=== PATIENT | female | born 1995 | race Caucasian/White ===

== ENCOUNTER 2018-06-14 01:25 | Emergency (ER) | payer SELFPAY ==
[2018-06-14] MEDS ORDERED: Sodium Chloride 0.9% 1,000 ML IV SCH (01:30)
--- NOTE | 2018-06-14 02:11 | CT ---
INDICATION: Fall TECHNIQUE: CT head without contrast. COMPARISON: FINDINGS: CSF spaces: Within normal limits for age. Brain parenchyma: The weathers-white differentiation is normal. No sign of mass, hemorrhage, or midline shift. Skull base and calvarium: The visualized paranasal sinuses and mastoid air cells demonstrate no acute or significant findings. The visualized orbits are grossly unremarkable. No skull fractures. IMPRESSION: Unremarkable noncontrast head CT. Please note that all CT scans at this facility use dose modulation, iterative reconstruction, and/or weight-based dosing when appropriate to reduce radiation dose to as low as reasonably achievable. Dictated by Tawana Wheeler MD @ Jun 14 2018 2:08AM Signed by Dr. Tawana Wheeler @ Jun 14 2018 2:10AM
[2018-06-14 02:32] LABS: CHLORIDE,CL 103 mmol/L (98-107); SODIUM,NA 140 mmol/L (136-145)
--- NOTE | 2018-06-14 02:51 | EDM.PDOC ---
ED HPI GENERAL MEDICAL PROBLEM - General Chief Complaint: Neuro Symptoms/Deficits Stated Complaint: AMB Time Seen by Provider: 06/14/18 02:48 Source of Information: Reports: Patient - History of Present Illness INITIAL COMMENTS - FREE TEXT/NARRATIVE: HISTORY AND PHYSICAL: History of present illness: Patient arrives via EMS Apparently has a history of CVA and [place], she acutely developed left sided weakness and aphasia She is alert, looking about the room and can turn her head EMS report some facial droop on the left however I do not appreciate this on exam at this time however she does have flaccid weakness of the left upper and lower extremity Review of systems unable to be obtained Review of systems: As per history of present illness and below otherwise all systems reviewed and negative. Past medical history: As per history of present illness and as reviewed below otherwise noncontributory. Surgical history: As per history of present illness and as reviewed below otherwise noncontributory. Social history: No reported history of drug or alcohol abuse. Family history: As per history of present illness and as reviewed below otherwise noncontributory. Physical exam: HEENT: Atraumatic, normocephalic, pupils reactive, negative for conjunctival pallor or scleral icterus, mucous membranes moist, throat clear, neck supple, nontender, trachea midline. Lungs: Clear to auscultation, breath sounds equal bilaterally, chest nontender. Heart: S1S2, regular, negative for clicks, rubs, or JVD. Abdomen: Soft, nondistended, nontender. Negative for masses or hepatosplenomegaly. Negative for costovertebral tenderness. Pelvis: Stable nontender. Genitourinary: Deferred. Rectal: Deferred. Extremities: Atraumatic, negative for cords or calf pain. Neurovascular unremarkable. Neuro: Awake, alert, oriented. Cranial nerves II through XII unremarkable. Cerebellum unremarkable. Motor and sensory unremarkable throughout. Exam nonfocal. Diagnostics: [CBC CMP UA troponin INR Head CT no contrast EKG Chest 1 view ] Therapeutics: Normal saline TNK ] Patient will be sent [facility] to Dr. Sim in the ER Impression: [ left-sided weakness upper and lower extremity ] Definitive disposition and diagnosis as appropriate pending reevaluation and review of above. ED ROS GENERAL - Review of Systems Review Of Systems: See Below ED EXAM, GENERAL - Physical Exam Exam: See Below Course - Vital Signs Last Recorded V/S: Last Vital Signs Temp 96.7 F 06/14/18 02:26 Pulse 97 06/14/18 02:26 Resp BP 168/88 H 06/14/18 02:26 Pulse Ox 97 06/14/18 02:26 - Orders/Labs/Meds Orders: Active Orders 24 hr Category Date Time Status EKG Documentation Completion [RC] STAT Care 06/14/18 01:26 Active Chest 1V Frontal [CR] Stat Exams 06/14/18 01:26 Taken UA RFX BRYAN AND CULT IF INDIC [URIN] Stat Lab 06/14/18 01:26 Ordered Labs: Laboratory Tests 06/14/18 06/14/18 06/14/18 Range/Units 01:52 01:52 01:52 WBC 12.25 H (4.0-11.0) K/uL RBC 4.72 (4.30-5.90) M/uL Hgb 11.6 L (12.0-16.0) g/dL Hct 38.0 (36.0-46.0) % MCV 80.5 (80.0-98.0) fL MCH 24.6 L (27.0-32.0) pg MCHC 30.5 L (31.0-37.0) g/dL RDW Std Deviation 55.8 (28.0-62.0) fl RDW Coeff of Venkatesh 19 H (11.0-15.0) % Plt Count 267 (150-400) K/uL MPV 8.80 (7.40-12.00) fL Neut % (Auto) 64.8 (48.0-80.0) % Lymph % (Auto) 25.1 (16.0-40.0) % Sequoyah % (Auto) 6.5 (0.0-15.0) % Eos % (Auto) 3.3 (0.0-7.0) % Baso % (Auto) 0.3 (0.0-1.5) % Neut # (Auto) 7.9 H (1.4-5.7) K/uL Lymph # (Auto) 3.1 H (0.6-2.4) K/uL Sequoyah # (Auto) 0.8 (0.0-0.8) K/uL Eos # (Auto) 0.4 (0.0-0.7) K/uL Baso # (Auto) 0.0 (0.0-0.1) K/uL Nucleated RBC % 0.0 /100WBC Nucleated RBCs # 0 K/uL INR 0.93 Sodium 140 (136-145) mmol/L Potassium 3.8 (3.5-5.1) mmol/L Chloride 103 (98-107) mmol/L Carbon Dioxide 25.0 (21.0-32.0) mmol/L BUN 7 (7.0-18.0) mg/dL Creatinine 0.9 (0.6-1.0) mg/dL Est Cr Clr Drug Dosing TNP Estimated GFR (MDRD) > 60.0 ml/min Glucose 154 H (74-106) mg/dL Calcium 8.8 (8.5-10.1) mg/dL Total Bilirubin 0.2 (0.2-1.0) mg/dL AST 30 (15-37) IU/L ALT 44 (14-63) IU/L Alkaline Phosphatase 98 (46-116) U/L Troponin I < 0.050 (0.000-0.056) ng/mL Total Protein 7.2 (6.4-8.2) g/dL Albumin 3.3 L (3.4-5.0) g/dL Globulin 3.9 (2.6-4.0) g/dL Albumin/Globulin Ratio 0.9 (0.9-1.6) Meds: Medications Discontinued Medications Generic Name Dose Route Start Last Admin Trade Name Freq PRN Reason Stop Dose Admin Alteplase, Recombinant Confirm 06/14/18 02:29 Activase Administered 06/14/18 02:30 Dose 100 mg .ROUTE .STK-MED ONE Departure - Departure Time of Disposition: 02:50 Disposition: DC/Tfer to Acute Hospital 02 Condition: Poor Clinical Impression: Left-sided weakness - Discharge Information - My Orders Last 24 Hours: My Active Orders 06/14/18 01:26 EKG Documentation Completion [RC] STAT Chest 1V Frontal [CR] Stat UA RFX BRYAN AND CULT IF INDIC [URIN] Stat - Assessment/Plan Last 24 Hours: My Active Orders 06/14/18 01:26 EKG Documentation Completion [RC] STAT Chest 1V Frontal [CR] Stat UA RFX BRYAN AND CULT IF INDIC [URIN] Stat
--- NOTE | 2018-06-14 04:17 | PCM.PRNOTE ---
- Free Text/Narrative Note: 0350 Called to ER for IV start. Ultrasound used with multiple attempts unable to start IV. IO was placed by physician.
[2018-06-16] MEDS ORDERED: Alteplase 81 MG in Premix Bag 1 BAG IV SCH (07:30)
--- NOTE | 2018-06-16 08:34 | CR ---
EXAM DATE: 06/14/18 PATIENT'S AGE: 22 Patient: ISRAEL RIBERA Facility: [facility] Site Site : 1995 Study: XRay-Chest [id number]/[id number] 2:31:49 AM Ordering Physician: [place] MURRAY MD Final Report: Indication: Pain Technique: Chest 1 view Comparison: None Findings/Impression: Cardiac size appears prominent which may be due in part to portable technique. Lung volumes are low. No focal consolidation, effusion, pneumothorax, or acute osseous abnormality. Dictated by Tawana Wheeler MD @ Jun 14 2018 2:45AM Signed by: Tawana Wheeler MD @06/14/2018 2:45:37 AM (Electronic Signature) Report Signed by Proxy. [facility]
== END 2018-06-14 04:32 ==
LOC: MW.ED 01:25
DX: G81.94 Hemiplegia, unspecified affecting left nondominant side (principal); Z86.73 Personal history of transient ischemic attack (TIA), and cerebral infarction without residual deficits
CPT/HCPCS: 36410; 36415; 70450; 70450-26; 71045; 71045-26; 80053; 81003; 81025; 84484; 85025; 85610; 93005; 96360; 96361; 99285; 99291; 99292